=== PATIENT | male | born 1935 | race Caucasian/White ===

== ENCOUNTER 2022-10-18 01:56 | Emergency (ER) | payer MEDICARE, OTHER ==
[~2022-10-18] VITALS: Ht 182.9 cm; Wt 117.9 kg
== END 2022-10-18 03:46 | disposition home or self-care (01) ==
LOC: ED 01:56
DX: J06.9 Acute upper respiratory infection, unspecified (principal); G47.00 Insomnia, unspecified; Z20.822 Contact with and (suspected) exposure to COVID-19; I10 Essential (primary) hypertension; E11.9 Type 2 diabetes mellitus without complications
CPT/HCPCS: 36415; 71046; 80053; 81001; 83735; 83880; 85025; 87502; 99283-25; C9803; U0003